=== PATIENT | male | born 1985 ===

== ENCOUNTER 2024-02-29 15:37 | Emergency (ER) | payer BC ==
[~2024-02-29] VITALS: Ht 177.8 cm; Wt 111.1 kg
[2024-02-29] MEDS ORDERED: Diphth,Pertuss(Acell),Tet Vac 0.5 ML VIAL IM ONE (16:05)
[2024-02-29] MEDS ORDERED: CEPH500 PO (16:58)
[2024-02-29] MEDS ORDERED: RX Prepack 6 Tabs Oxycodone 5mg UD ONE (17:05)
== END 2024-02-29 18:04 | disposition home or self-care (01) ==
LOC: ER 15:37
DX: S61.211A Laceration without foreign body of left index finger without damage to nail, initial encounter (principal); W27.0XXA Contact with workbench tool, initial encounter
CPT/HCPCS: 12002; 73140; 90471; 90715; 99282-25; A9270

== ENCOUNTER 2024-03-02 19:42 | Emergency (ER) | payer BC ==
[~2024-03-02] VITALS: Ht 177.8 cm; Wt 111.1 kg
[~2024-03-02 19:42] MED LIST: CEPH500 PO
== END 2024-03-02 20:37 | disposition home or self-care (01) ==
LOC: ER 19:42
DX: Z48.817 Encounter for surgical aftercare following surgery on the skin and subcutaneous tissue (principal)
CPT/HCPCS: 99282

== ENCOUNTER 2024-04-01 08:17 | Day surgery (SDC) | payer OTHER ==
[~2024-04-01 08:17] MED LIST changes: +Lidocaine HCl 4% Cream 5 GM ONE
== END 2024-04-01 23:00 | disposition home or self-care (01) ==
LOC: WOUND 08:17
DX: S61.211A Laceration without foreign body of left index finger without damage to nail, initial encounter (principal); W31.2XXA Contact with powered woodworking and forming machines, initial encounter
CPT/HCPCS: A9270; G0463

== ENCOUNTER → 2024-04-11 | Outpatient (CLI) | payer OTHER ==
[~2024-04-11] MED LIST changes: -Lidocaine HCl 4% Cream 5 GM ONE
[2024-04-11 17:46] LABS: BASOPHILS ABSOLUTE AUTO 0.02 K/mm3 (0.00-0.23); BASOPHILS PERCENT AUTO 0 % (0-2); EOSINOPHILS ABSOLUTE AUTO 0.01 K/mm3 (0.00-0.68); EOSINOPHILS PERCENT AUTO 0 % (0-6); Hemoglobin 15.9 g/dL (13.5-17.5); IMMATURE GRAN ABSOLUTE AUTO 0.02 K/mm3 (0.00-0.10); IMMATURE GRAN PERCENT AUTO 0 % (0-1); LYMPHOCYTES ABSOLUTE AUTO 1.12 K/mm3 (0.84-5.20); LYMPHOCYTES PERCENT AUTO 21 % (21-46); MONOCYTES ABSOLUTE AUTO 0.73 K/mm3 (0.16-1.47); MONOCYTES PERCENT AUTO 14 % (4-13); Mean Corpuscular HGB Conc 33.8 g/dL (31.5-36.5); Mean Corpuscular Volume 86 fL (80-100); Mean Platelet Volume 10.6 fL (9.1-12.4); NEUTROPHILS ABSOLUTE AUTO 3.43 K/mm3 (1.96-9.15); NEUTROPHILS PERCENT AUTO 64 % (41-73); Platelet Count 279 K/mm3 (150-400); RDW Coefficient Variation 12.5 % (11.7-14.2); RDW Standard Deviation 39.3 fL (35.1-46.3); Red Blood Cell Count 5.49 M/mm3 (4.30-5.90); White Blood Cell Count 5.33 K/mm3 (4.00-11.30)
[2024-04-11 19:53] LABS: Alanine Aminotransfer (ALT/SGP 95 U/L (12-78); Albumin, Blood 4.1 g/dL (3.4-5.0); Alk Phos 80 U/L (50-136); Anion Gap 10 mmol/L (3-11); Aspartate Aminotrans (AST/SGOT 39 U/L (12-37); Bilirubin, Total 0.4 mg/dL (0.1-1.0); Blood Urea Nitrogen 17 mg/dL (8-24); CHOL/HDL RATIO 6.3; CO2, Blood 26 mmol/L (21-32); Calcium, Blood 9.2 mg/dL (8.5-10.1); Chloride, Blood 102 mmol/L (98-108); Cholesterol 209 mg/dL (50-200); Glucose, Blood 97 mg/dL (70-99); HDL Cholesterol 33 mg/dL (>39); LDL/HDL RATIO 4.7; Low Density Lipoprotein Chol 154 mg/dL (0-110); Potassium, Blood 3.8 mmol/L (3.5-5.5); Sodium, Blood 134 mmol/L (136-145); Total Protein, Blood 8.1 g/dL (6.4-8.2); Triglycerides 111 mg/dL (30-140); Very Low Density Lipoprot Chol 22 mg/dL (6-28)
[2024-04-11 19:57] LABS: Bun/Creatinine Ratio 20.3 (12.0-20.0); Creatinine, Blood 0.84 mg/dL (0.60-1.20); Glomerular Filtration Rate 114 (60-)
== END | disposition home or self-care (01) ==
LOC: LAB 16:21 → LAB SHORT 16:21
PROVIDERS: Physician Assistant
DX: N41.0 Acute prostatitis (principal); Z79.899 Other long term (current) drug therapy
CPT/HCPCS: 80053; 80061; 82306; 83036; 84443; 85025; 85651; 86140; 87077; 87086; 87186

== ENCOUNTER 2024-04-15 | Day surgery (SDC) | payer OTHER ==
[2024-04-15] MEDS ORDERED: Lidocaine HCl 4% Cream 5 GM ONE (15:38)
== END 2024-04-17 23:00 | disposition home or self-care (01) ==
LOC: WOUND
DX: S61.201A Unspecified open wound of left index finger without damage to nail, initial encounter (principal); X58.XXXA Exposure to other specified factors, initial encounter
CPT/HCPCS: A9270

== ENCOUNTER 2024-04-22 02:28 | Day surgery (SDC) | payer OTHER | END 2024-04-22 23:00 | disposition home or self-care (01) | LOC: WOUND 02:28 | DX: S61.002D Unspecified open wound of left thumb without damage to nail, subsequent encounter (principal); W31.2XXD Contact with powered woodworking and forming machines, subsequent encounter | CPT/HCPCS: G0463 ==